=== PATIENT | female | born 1990 | race Caucasian/White ===

== ENCOUNTER 2022-08-24 07:00 | Outpatient (OUT) | payer BC, SELFPAY ==
[2022-08-25 11:58] LABS: Glucose 1 Hour 148 mg/dL
[2022-08-25 12:04] LABS: BOX Test Sent Out YES
== END 2022-08-25 11:01 | disposition home or self-care (01) ==
LOC: LAB 09-13 11:08
PROVIDERS: PCP Family Medicine; Visit Provider Obstetrics & Gynecology
DX: Z86.32 Personal history of gestational diabetes (principal); N92.6 Irregular menstruation, unspecified
CPT/HCPCS: 36415; 82950

== ENCOUNTER 2022-08-30 20:23 | Outpatient (REF) | payer BC, SELFPAY ==
[2022-09-07 12:08] LABS: Age Gdln ACOG Testing Note (.); HPV Aptima Negative (Negative); IGP, Aptima HPV, rfx 16/18,45 Note (.)
== END 2022-08-30 20:24 | disposition home or self-care (01) ==
LOC: LAB 20:23
PROVIDERS: PCP Family Medicine; Visit Provider Physician Assistant
DX: Z12.4 Encounter for screening for malignant neoplasm of cervix (principal)
CPT/HCPCS: 87624; G0145

== ENCOUNTER 2022-09-28 10:01 | Outpatient (OUT) | payer BC, SELFPAY ==
--- NOTE | 2022-09-28 | US_ITS ---
[address] [address] Patient Name: SANJIV REDDY MRN: [id number] date: 1990 Sex: F Assigned Patient Location: US Current Patient Location: US Accession/Order Number: [id number] Exam Date: 09/28/2022 10:14 Report Date: 09/28/2022 16:28 At the request of: BRANDIE AKBAR Procedure: US OB anatomy EXAMINATION: US OB anatomy HISTORY: ANATOMY COMPARISON: No relevant comparison available. TECHNIQUE: Transabdominal sonographic examination was performed for obstetrical and evaluation. FINDINGS: Number: 1 Heart Rate: 149.0 bpm H.B. /min Amniotic Fluid Volume: Subjectively normal Placental Location: POSTERIOR , grade 0. Placental edge 3.3 cm from the internal cervical os Cervix Length:4.6 cm the closed Normal anatomy: Lateral ventricles, cerebellum, posterior fossa, nose/lips, orbits, four-chamber heart, RVOT, LVOT, diaphragm, stomach, kidneys, abdominal cord insertion, bladder, umbilical arteries, three-vessel cord, spine, extremities BIOMETRY: BPD: 5.4 cm 22 weeks 4 days HC: 19.9 cm 22 weeks 1 days AC: 16.9 cm 21 weeks 6 days FL: 4.0 cm 22 weeks 5 days EFW:490.4 grams; FL/AC: 23.4 FL/BPD: 72.9 HC/AC: 1.2 GESTATIONAL AGE: Age by EDC: 21 weeks 5 days Age by current US: 22 weeks 2 days TYRESE by current US: [id number] TYRESE by EDC: US/US OB anatomy IMPRESSION: Normal anatomy scan *Reference: [facility] Practice Guideline for the performance of Obstetric Ultrasound Examinations, December 04, 2006. Electronically authenticated by: VIGNESH CHOI Date: 09/28/2022 16:28
== END 2022-09-28 10:02 | disposition home or self-care (01) ==
LOC: US 10:01
PROVIDERS: PCP Family Medicine; Visit Provider Obstetrics & Gynecology
DX: Z34.92 Encounter for supervision of normal pregnancy, unspecified, second trimester (principal); Z3A.21 21 weeks gestation of pregnancy
CPT/HCPCS: 76805; 76817

== ENCOUNTER 2022-12-07 13:33 | Outpatient (OUT) | payer BC, SELFPAY ==
--- NOTE | 2022-12-07 13:37 | US_ITS ---
[address] [address] Patient Name: SANJIV REDDY MRN: [id number] date: 1990 Sex: F Assigned Patient Location: US Current Patient Location: US Accession/Order Number: [id number] Exam Date: 12/07/2022 13:37 Report Date: 12/07/2022 19:56 At the request of: BRANDIE AKBAR Procedure: US OB growth EXAMINATION: US OB growth HISTORY: SGA COMPARISON: No relevant comparison available. FINDINGS: Heart Rate: 156.0 bpm Amniotic Fluid Volume: 14.3 cm Number: 1.0 Position: Cephalic presentation, longitudinal lie Maximum Vertical Pocket: 3.5 cm cm 2.7 cm cm 4.7 cm cm 3.5 cm cm BIOMETRY: BPD: 7.9 cm cm; 31 weeks 5 days; 40% HC: 29.0 cmcm; 32 weeks 0 days, 20% AC: 28.3 cm cm; 32 weeks 3 days, 68% FL: 6.2 cm cm; 32 weeks 1 days; 47.1 % % EFW: 1919.3 grams, 4 lbs. 4 oz., 54% FL/AC: 21.9 FL/BPD: 78.4 HC/AC: 1.0 GESTATIONAL AGE: Age by EDC: 31 weeks 5 days TYRESE by EDC: 02/03/2023 Age by US: 32 weeks 1 day TYRESE by US: 01/31/2023 US/US OB growth IMPRESSION: Normal interval growth Electronically authenticated by: VIGNESH CHOI Date: 12/07/2022 19:56
== END 2022-12-07 13:34 | disposition home or self-care (01) ==
LOC: US 13:33
PROVIDERS: PCP Family Medicine; Visit Provider Obstetrics & Gynecology
DX: O36.5930 Maternal care for other known or suspected poor fetal growth, third trimester, not applicable or unspecified (principal); Z3A.31 31 weeks gestation of pregnancy
CPT/HCPCS: 76816

== ENCOUNTER 2023-01-05 18:53 | Outpatient (REF) | payer BC, SELFPAY | END 2023-01-05 18:54 | disposition home or self-care (01) | LOC: LAB 18:53 | PROVIDERS: PCP Family Medicine; Visit Provider Physician Assistant | DX: Z34.93 Encounter for supervision of normal pregnancy, unspecified, third trimester (principal) | CPT/HCPCS: 87081 ==

== ENCOUNTER 2023-01-30 05:13 | Inpatient (IN) | payer BC, SELFPAY ==
[2023-01-30] VITALS (34 sets, daily range): BP systolic 109–147; BP diastolic 60–86; PULSE 64–88; RESP 13–31; TEMP 36.1–37.1; O2SAT 95–99
[2023-01-30] MEDS: 0.9 % SODIUM CHLORIDE 1,000 ML 1000 ML IV (06:16)
[2023-01-30 06:22] LABS: Basophils Percent Auto 0.2 % (0.2-2.0); Eosinophils Absolute Auto 0.1 10^3/uL (0.0-0.7); Eosinophils Percent Auto 0.5 % (0.9-7.0); Hematocrit 38.1 % (36.0-48.0); Hemoglobin 13.1 g/dL (12.0-16.0); Immature Granulocytes Abs Auto 0.03 10^3/uL (0.00-0.03); Immature Granulocytes Pct Auto 0.3 % (0.0-0.5); Lymphocytes Absolute Auto 1.7 10^3/uL (1.2-3.8); Lymphocytes Percent Auto 17.5 % (20.5-60.0); Mean Corpuscular HGB Conc 34.4 g/dL (29.9-35.2); Mean Corpuscular Hemoglobin 31.9 pg (26.7-34.0); Mean Corpuscular Volume 92.7 fL (81.0-99.0); Mean Platelet Volume 11.7 fL (9.5-13.5); Monocytes Absolute Auto 0.6 10^3/uL (0.3-0.8); Monocytes Percent Auto 6.4 % (1.7-12.0); Neutrophils Absolute Auto 7.4 10^3/uL (1.4-6.5); Neutrophils Percent Auto 75.1 % (43.0-75.0); Platelet Count 174 10^3/uL (150-450); Red Blood Count 4.11 10^6/uL (4.20-5.40); Red Cell Distribution Width 13.1 % (11.0-15.0); White Blood Count 9.8 10^3/uL (4.0-11.0)
[2023-01-30 06:23] LABS: Bilirubin Urine NEGATIVE (NEGATIVE); Blood Urine SMALL (NEGATIVE); Clarity Urine CLEAR (CLEAR); Color Urine YELLOW (YELLOW); Glucose Urine UA NEGATIVE (NEGATIVE); Ketones Urine NEGATIVE (NEGATIVE); Leukocyte Esterase Urine NEGATIVE (NEGATIVE); Nitrite Urine NEGATIVE (NEGATIVE); Protein Urine >=300 mg/dL (NEG/TRACE); Specific Gravity Urine >=1.030 (1.005-1.025); Urobilinogen Urine 0.2 EU/dL (0.2-1.0)
[2023-01-30 06:29] LABS: Bacteria Urine SMALL #/HPF (NONE SEEN); Cast Seen? NONE SEEN #/LPF (NONE SEEN); Crystals Seen? None Seen #/HPF (None Seen); Mucus Urine NONE SEEN (NONE SEEN); RBC Urine 0-2 #/HPF (0-2); Squamous Epithelial Cell Urine FEW #/LPF (NONE/RARE)
[2023-01-30 06:34] LABS: Amphetamine Screen Urine NEGATIVE (NEGATIVE); Barbiturates Screen Urine NEGATIVE (NEGATIVE); Benzodiazepines Screen Urine NEGATIVE (NEGATIVE); Buprenorphine Screen Urine NEGATIVE (NEGATIVE); Cannabinoid Screen Urine NEGATIVE (NEGATIVE); Cocaine Screen Urine NEGATIVE (NEGATIVE); Methadone Screen Urine NEGATIVE (NEGATIVE); Methamphetamines Screen Urine NEGATIVE (NEGATIVE); Opiate Screen Urine NEGATIVE (NEGATIVE); Oxycodone Screen Urine NEGATIVE (NEGATIVE); Phencyclidine Screen Urine NEGATIVE (NEGATIVE); Tricyclic Antidepressant Urine NEGATIVE (NEGATIVE)
[2023-01-30] MEDS: CITRIC ACID/SODIUM CITRATE 30 ML SOLUTION ORACIT SHOHL'S SOLN PO (07:27)
[2023-01-30] MEDS: CEFAZOLIN SODIUM/DEXTROSE,ISO 2 GM/50 ML PIGGYBACK IV ×2 (07:28→13:16)
[2023-01-30] MEDS: FAMOTIDINE/PF 20 MG/2 ML VIAL IV (07:28)
[2023-01-30] MEDS: METOCLOPRAMIDE HCL 10 MG/2 ML VIAL IVP (07:28)
--- NOTE | 2023-01-30 07:44 | W.PC.ACHO ---
Registration Status: ADM IN Primary Language: Tunisian Preferred Language: Tunisian Report given to Lokesh Velarde RN. Active Medications Generic Name Dose Route Start Last Admin Trade Name Freq PRN Reason Stop Dose Admin Sodium Chloride 1,000 mls @ 125 mls/hr 01/30/23 05:30 Sodium Chloride 0.9% 1,000 Ml IV .Q8H MAMADOU Diet Category Date Time Status NPO Diet Diet 01/30/23 05:24 Active Consults Category Date Time Status Consult to Anesthesiology Routine Cons 01/30/23 Ordered IV Insertion/Site Date of IV Line Insertion [ 01/30/23 Short PIV (<1.75 in) 22g left Hand] IV Insertion Time [Short PIV ( 06:10 <1.75 in) 22g left Hand] Neurology Patient orientation (short person,place,time,situation list) Catheter Urinary Catheter Date of 01/30/23 Insertion [Urethral] Urinary Catheter Time of 06:24 Insertion [Urethral]
[2023-01-30] MEDS: LACTATED RINGER'S SOLUTION 1,000 ML 50 ML IV (07:55)
--- NOTE | 2023-01-30 08:35 | P.ON_ITS ---
Brief Operative Note Date of procedure: 01/30/23 Pre-op diagnosis: iup at 39wks, desires permanent sterilization, previous c.s Post-op diagnosis: same as pre-op Procedure: NAME OF PROCEDURE: [ section with lt salpingectomy ] PROCEDURE: Patient was taken back to the Operating Room where she was given a spinal anesthesia with Duramorph without difficulty. She was prepped and draped in the normal sterile fashion. A Pfannenstiel skin incision was then made 2?cm above the symphysis pubis and carried down to underlying rectus fascia using a Bovie. The fascia was incised in the midline and extended laterally using Enciso scissors. Two Mor clamps were placed on the superior aspect of the fascia and dissected off the underlying rectus muscles. The same was performed on the inferior aspect as well. The muscles were then in the midline. Periton eum was identified and entered bluntly. The peritoneum was then extended superiorly and inferiorly with good visualization of the bladder. The bladder blade was inserted. Vesicouterine peritoneum was identified, tented up, and entered with Metzenbaum scissors. A bladder flap was then created digitally. The bladder blade was reinserted. A low transverse incision was made on the patient's uterus and extended laterally digitally. The infant was then delivered atraumatically after the bladder blade was removed in the cephalic position. The cord was clamped and cut. Cord blood was obtained. The infant was handed off to awaiting team. The patient's placenta was spontaneously delivered. The uterus was then exteriorized. The uterus was cleared of all clots and debris. The bladder blade was reinserted. The patient's uterine incision was closed using #0 Vicryl in a running lock fashion. Excellent hemostasis was assured.? The lt tube was identified and grasped with babock, the ligasure was used to transect and ligate the tube in its entirity. The uterus was then returned to the patient's abdomen. The patient's abdomen was copiously irrigated using warm saline. Peritoneal gutters were cleared of all clots and debris. Again excellent hemostasis was assured. The patient's fascia was closed using #0 Vicryl in a running fashion. The patient's skin was closed using 4-0 Vicryl subcuticularly. The patient tolerated the procedure well. Sponge, lap, and needle counts were correct x2. The patient was taken to the Recovery Room in stable condition. Anesthesia: RON Surgeon: Sebastian Figueroa Asset Protection Manager: Trina Hebert Estimated blood loss (mL): 600 Pathology: other (lt tube) Condition: stable Disposition: PACU
--- NOTE | 2023-01-30 08:38 | P.OBPRC_ITS ---
Procedure Pre-op/Post-op diagnoses: Pre-Op/Post-Op Diagnoses Operation Date: 01/30/23 07:30 <No data on this case meets the specified criteria> Procedure: Procedures Operation Date: 01/30/23 07:30 Actual Procedure Side Surgeon p Repeat with Left Salpingectomy Bilateral Sebastian Figueroa DO Commercial Administrator: Trina Hebert Disposition: PACU Anesthesia type: Spinal
[2023-01-30] MEDS: OXYTOCIN/0.9 % SODIUM CHLORIDE 20 UNITS/1,000 ML PLAST..BAG 200 UNIT IV (09:15)
--- NOTE | 2023-01-30 17:36 | RESP.RT ---
Done per nursing
[2023-01-30] MEDS: KETOROLAC TROMETHAMINE 30 MG/ML VIAL IVP (22:14)
[2023-01-31 01:02] VITALS: BP 122/66; PULSE 71; RESP 16; TEMP 36.8
[2023-01-31 06:40] LABS: Basophils Percent Auto 0.2 % (0.2-2.0); Eosinophils Percent Auto 0.1 % (0.9-7.0); Hematocrit 32.2 % (36.0-48.0); Hemoglobin 10.8 g/dL (12.0-16.0); Immature Granulocytes Abs Auto 0.04 10^3/uL (0.00-0.03); Immature Granulocytes Pct Auto 0.4 % (0.0-0.5); Lymphocytes Absolute Auto 1.8 10^3/uL (1.2-3.8); Lymphocytes Percent Auto 15.8 % (20.5-60.0); Mean Corpuscular HGB Conc 33.5 g/dL (29.9-35.2); Mean Corpuscular Hemoglobin 32.4 pg (26.7-34.0); Mean Corpuscular Volume 96.7 fL (81.0-99.0); Mean Platelet Volume 11.5 fL (9.5-13.5); Monocytes Absolute Auto 0.7 10^3/uL (0.3-0.8); Monocytes Percent Auto 6.1 % (1.7-12.0); Neutrophils Absolute Auto 8.7 10^3/uL (1.4-6.5); Neutrophils Percent Auto 77.4 % (43.0-75.0); Platelet Count 143 10^3/uL (150-450); Red Blood Count 3.33 10^6/uL (4.20-5.40); Red Cell Distribution Width 13.1 % (11.0-15.0); White Blood Count 11.2 10^3/uL (4.0-11.0)
--- NOTE | 2023-01-31 08:10 | PM.OBPN ---
OB - PN: Subj Subjective Patient comments: no complaints [place] status: doing well Exam Constitutional Vital Signs, click to edit/add: Last Vital Signs Temp 98.2 F 01/31/23 01:02 Pulse 71 01/31/23 01:02 Resp 16 01/31/23 01:02 BP 122/66 01/31/23 01:02 Pulse Ox 98 01/30/23 09:50 O2 Del Method Room Air 01/30/23 19:48 Documenting provider has reviewed patient's vital signs: yes Common normals: no apparent distress HENMT Common normals: normocephalic Eye Common normals: PERRL and EOMs intact bilaterally General eye: normal appearance of both eyes Neck & C-Spine Common normals: full ROM and no lymphadenopathy Lymph Lymphatic: no lymphadenopathy noted Chest Common normals: inspection of chest normal Respiratory Common normals: normal respiratory effort Cardio Common normals: regular rate and regular rhythm Rate: regular rate Rhythm: regular rhythm GI Common normals: Normal to inspection, nondistended, normoactive bowel sounds present Palpation: soft Common normals: no CVA tenderness Back & Pelvis Common normals: no CVA tenderness Extremity Common normals: normal to inspection and full ROM Neuro Common normals: oriented x3 and moves all extremities Psych Common normals: mental status grossly normal Thought content: normal thought content Results Labs Labs: Short CBC 01/31/23 Range/Units 06:20 WBC 11.2 H (4.0-11.0) 10^3/uL Hgb 10.8 L (12.0-16.0) g/dL Hct 32.2 L (36.0-48.0) % Plt Count 143 L (150-450) 10^3/uL OB - PN: A/P Plan - day: 1 Plan: routine postop care Time Spent with Patient Time: Total time spent is greater than 50% in coordination of care (as documented) at patient's floor/unit and/or counseling patient: Total time spent with greater than 50% in coordination of care (as documented) at patient's floor/unit and/or counseling patient: less than 15 minutes
[2023-01-31 10:55] VITALS: RESP 14; TEMP 36.8
[2023-01-31 10:56] VITALS: BP 132/73; PULSE 65
[2023-01-31] MEDS: DOCUSATE SODIUM 100 MG CAPSULE PO ×2 (10:56→21:58)
[2023-01-31] MEDS: KETOROLAC TROMETHAMINE 30 MG/ML VIAL IVP ×2 (10:57→18:25)
[2023-01-31] MEDS: ENOXAPARIN SODIUM 40 MG/0.4 ML SYRINGE SUBQ (10:57)
--- NOTE | 2023-01-31 19:13 | W.PC.ACHO ---
Registration Status: ADM IN Primary Language: Marshallese Preferred Language: Marshallese Active Medications Generic Name Dose Route Start Last Admin Trade Name Freq PRN Reason Stop Dose Admin Al Hydroxide/Mg Hydroxide 2,400 mg 01/30/23 08:38 Magnesium Hydroxide 2,400 Mg/10 Ml Oral.Susp PO Q6H PRN Dyspepsia Diphtheria/Pertussis/Tetanus Vacc 0.5 ml 02/01/23 09:00 Adacel Diph,Pertuss(Acell),Tet Vac/Pf 0.5 Ml Adult Syringe IM 02/01/23 09:01 .ONCE ONE Docusate Sodium 100 mg 01/31/23 09:00 01/31/23 10:56 Docusate Sodium 100 Mg Capsule PO 100 mg BID MAMADOU Administration Enoxaparin Sodium 40 mg 01/31/23 11:00 01/31/23 10:57 Enoxaparin Sodium 40 Mg/0.4 Ml Syringe SUBQ 40 mg QD@1100 MAMADOU Administration Sodium Chloride 1,000 mls @ 125 mls/hr 01/30/23 05:30 01/30/23 12:03 Sodium Chloride 0.9% 1,000 Ml IV Not Given .Q8H MAMADOU Ibuprofen 800 mg 01/30/23 08:38 Ibuprofen 400 Mg Tablet PO Q8H PRN Pain Ketorolac Tromethamine 30 mg 01/30/23 08:38 01/31/23 18:25 Ketorolac Tromethamine 30 Mg/Ml Vial IVP 02/01/23 08:39 30 mg Q6H PRN Administration Pain Measles/Mumps/Rubella Vaccine Live 0.5 ml 02/01/23 09:00 Measles,Mumps,Rubella Vacc/Pf 0.5 Ml Vial SQ 02/01/23 09:01 .ONCE ONE Ondansetron HCl 4 mg 01/30/23 08:38 Ondansetron Pf 4 Mg/2 Ml Vial IV Q6H PRN Nausea And Vomiting Ondansetron HCl 4 mg 01/30/23 08:38 Ondansetron 4 Mg Rapdis Tablet PO Q6H PRN Nausea And Vomiting Oxycodone/Acetaminophen 2 tab 01/30/23 08:38 Oxycodone Hcl/Acetaminophen 5mg/325mg PO Q4H PRN Pain Scale 7-10 Oxycodone/Acetaminophen 1 tab 01/30/23 08:38 Oxycodone Hcl/Acetaminophen 5mg/325mg PO Q4H PRN Pain Scale 4-6 Senna 17.2 mg 01/30/23 20:00 Sennosides 8.6 Mg Tablet PO QHS PRN Constipation Simethicone 80 mg 01/30/23 08:38 Simethicone 80 Mg Tab.Chew PO QID PRN Abdominal Distention Respiratory Oxygen Delivery Method Room Air Oxygen Delivery Method Room Air Oxygen Delivery Method Room Air Oxygen Delivery Method Room Air Cardiology Heart Sounds Strong,Regular Heart Sounds Strong,Regular Heart Sounds Regular Bowels Bowel Pattern No Bowel Movement Bowel Pattern No Bowel Movement Renal Bladder Pattern Continent
[2023-01-31 23:49] VITALS: BP 160/79; PULSE 71
[2023-01-31 23:51] VITALS: RESP 16
[2023-01-31 23:54] VITALS: BP 146/70; PULSE 71
--- NOTE | 2023-02-01 07:40 | PM.OBPN ---
OB - PN: Subj Subjective Patient comments: no complaints and pain well controlled [place] status: doing well Exam Constitutional Vital Signs, click to edit/add: Last Vital Signs Temp 98.2 F 01/31/23 10:55 Pulse 71 01/31/23 23:54 Resp 16 01/31/23 23:51 BP 146/70 H 01/31/23 23:54 Pulse Ox 98 01/30/23 09:50 O2 Del Method Room Air 01/31/23 10:55 Documenting provider has reviewed patient's vital signs: yes Respiratory Common normals: normal respiratory effort and clear to auscultation bilaterally Cardio Common normals: regular rate and regular rhythm GI Common normals: Normal to inspection, nondistended, normoactive bowel sounds present Extremity Common normals: no calf tenderness OB - PN: A/P Plan - day: 2 Plan: routine postop care, discharge home and follow up 6 weeks Time Spent with Patient Time: Total time spent is greater than 50% in coordination of care (as documented) at patient's floor/unit and/or counseling patient: Total time spent with greater than 50% in coordination of care (as documented) at patient's floor/unit and/or counseling patient: less than 15 minutes
[2023-02-01] MEDS: IBUPROFEN 400 MG TABLET 800 MG PO (08:22)
[2023-02-01 08:23] VITALS: BP 162/77; PULSE 81
[2023-02-01] MEDS: DOCUSATE SODIUM 100 MG CAPSULE PO (08:23)
[2023-02-01 08:25] VITALS: RESP 16; TEMP 37.1
[2023-02-01 08:27] VITALS: BP 150/68; PULSE 80
--- NOTE | 2023-02-12 | DS_ITS ---
DISCHARGE DATE: 02/12/2023 PRIMARY DIAGNOSES: 1. Intrauterine at 39 weeks. 2. Desires permanent sterilization. 3. Previous . PROCEDURE: section with left salpingectomy. HOSPITAL COURSE: As expected. Please see chart for full details. LABORATORY DATA: Please see chart. COMPLICATIONS: None. DISCHARGE CONDITION: Stable. CONSULTATION: Anesthesia. DISCHARGE INSTRUCTIONS: 1. Diet: Regular. 2. Medications: a. Percocet 5/325 one to two p.o. every 4-6 hours p.r.n. pain. b. Motrin 800 one p.o. every 8 hours p.r.n. pain. 3. Followup in one week. Restrictions: Pelvic rest for 6 weeks. No heavy lifting. May drive when pain free and no longer on narcotics. MTDD
== END 2023-02-01 12:05 | disposition home or self-care (01) | DRG 785 ==
PROVIDERS: Admitting Provider Obstetrics & Gynecology; PCP Family Medicine; Visit Provider Obstetrics & Gynecology
PROC: 10D00Z1 Extraction of Products of Conception, Low, Open Approach (ICD-10-PCS; CPT 59514; principal; 2023-01-30 07:30)
DX: O34.211 Maternal care for low transverse scar from previous cesarean delivery (principal); Z3A.39 39 weeks gestation of pregnancy; Z37.0 Single live birth; Z86.32 Personal history of gestational diabetes; Z90.721 Acquired absence of ovaries, unilateral; Z30.2 Encounter for sterilization
CPT/HCPCS: 36415; 51702; 80307; 81001; 85025; 86850; 86900; 86901; 88302; 94667; 94668; 96372; 96374; 96375; 96376

== ENCOUNTER 2023-02-02 12:25 | Outpatient (OUT) | payer BC, SELFPAY ==
--- NOTE | 2023-02-02 14:28 | PC.NURSE ---
Milla and 3 day old Cherelle arrive for follow up. and 4 yo brother with them, but got for a walk. Milla states felt good to just be at home Baby nursed every 2 hours during the night and had several small stools and 3 large wets since D/C yesterday. Mom states nipples remain tender, not worse and maybe even a bit better Milk coming in as is dripping during letdown and gulps during feeds. Milla noted to have elevated blood pressure X2 with assessment. Denies other signs or symptoms at this time. No headache, no epigastric pain, no visual changes. +1 edema of ankles, No SOB or other complaints. Taking Motrin and Tylenol for incisional discomfort. TC to Dr Figueroa and reported assessment and BP's. Advised rest, and BP precautions at this time. Pt to have BP check in office 02/06/2023. Pt verbalized understanding, reviewed [facility] POST- warning signs. Cherelle doing well, assessment WNL. Feeds well with deep latch. encouraged mom to practice asymmetrical latch for more breast tissue into mouth. States will continue to try. No further questions or concerns at this time. Family leaves ambulatory aware to call [facility] for concerns and PCP as needed.
[2023-02-02 14:32] VITALS: BP 144/96; PULSE 90; RESP 18; TEMP 36.8; O2SAT 96
== END 2023-02-02 14:00 | disposition home or self-care (01) ==
LOC: FBCO 12:27
PROVIDERS: PCP Family Medicine; Visit Provider Obstetrics & Gynecology
DX: Z39.2 Encounter for routine postpartum follow-up (principal)